=== PATIENT | male | born 1955 | race Caucasian/White ===

== ENCOUNTER 2017-03-02 10:25 | Day surgery (SDC) | payer BC, OTHER ==
[~2017-03-02 10:25] MED LIST: Lactated Ringers 1,000 ML IV SCH
[2017-03-02] MEDS ORDERED: fentaNYL 100 MCG/2 ML SDV ONE (11:41)
[2017-03-02] MEDS ORDERED: Propofol 200 MG/20 ML SDV ONE (11:41)
[2017-03-02 13:21] VITALS: BP 97/65
--- NOTE | 2017-03-05 08:54 | OR ---
PREOPERATIVE DIAGNOSIS: Screening colonoscopy. Family history of colon cancer. POSTOPERATIVE DIAGNOSIS: Normal colonoscopic exam. PROCEDURE PROPOSED: Total flexible colonoscopy. PROCEDURE DONE: Total flexible colonoscopy. INDICATION: This is a 61-year-old gentleman who comes in for his first colonoscopic exam. He has a family history of a mother with colon cancer. He denies any symptomatology technique. The patient was brought to the endoscopy suite, placed in left lateral decubitus position. He was sedated with propofol per MEDICAL OFFICE REPRESENTATIVE. The flexible video colonoscope was then passed transanally and under visualization advanced to the cecum. Examination revealed a normal ascending, transfers, descending, sigmoid, and rectal colon. There was no evidence of any polyps, colitis, diverticulosis, or any other abnormalities. The scope was then withdrawn. The patient tolerated procedure well. FINAL IMPRESSION: 1. Normal colonoscopic exam. 2. Family history of colon cancer-mother. PLAN: He should continue with colonic surveillance every 5 years hereafter due to his family history. SCM: 03/02/2017 12:31:37 MODL: 03/02/2017 19:25:30 /[id number]
== END 2017-03-02 13:45 | disposition home or self-care (01) ==
LOC: VM.SDS 10:25
PROVIDERS: ATTEND Surgery
DX: Z12.11 Encounter for screening for malignant neoplasm of colon (principal); E78.5 Hyperlipidemia, unspecified; Z79.899 Other long term (current) drug therapy
CPT/HCPCS: 45378; J2704; J3010; J7120